=== PATIENT | female | born 1980 | race Two or more races ===

== ENCOUNTER 2020-11-01 07:15 | Day surgery (SDC) | payer BC ==
[2020-11-01] VITALS (10 sets, daily range): BP systolic 91–118; BP diastolic 49–73
[~2020-11-01] VITALS: Ht 157.5 cm; Wt 68.0 kg
--- NOTE | 2020-11-01 08:49 | Pre-Procedure Note/Attestation ---
Pre-Procedure Note/Attestation Complete Prior to Procedure Planned Procedure: not applicable Procedure Narrative: esophagogastroduodenoscopy and colonoscopy Indications for Procedure Pre-Operative Diagnosis: rectal bleed Attestation I attest that I discussed the nature of the procedure; its benefits; risks and complications; and alternatives (and the risks and benefits of such alternative s), prior to the procedure, with the patient (or the patient's legal artist representative). I attest that, if there was a reasonable possibility of needing a blood transfusion, the patient (or the patient's legal artist representative) was given the [facility] standardized written summary, pursuant to the Michael Keyla Blood Safety Act ([place] Health and Safety Code # 1645, as amended). I attest that I re-evaluated the patient just prior to the surgery and that there has been no change in the patient's H&P, except as documented below: Paramjit Alexandre MD Nov 01, 2020 08:49
--- NOTE | 2020-11-01 08:49 | Short Stay Surgery H&P ---
History of Present Illness History of Present Illness Chief Complaint see office note HPI Karen Urena is a 40 year old female who was admitted on for Rectal Bleed Patient History Allergies: Coded Allergies: No Known Allergies (Unverified , 10/30/20) Medication History No Active Prescriptions or Reported Meds Physical Exam Vital Signs Last Vital Signs Date Time Temp Pulse Resp B/P (MAP) Pulse Ox O2 Delivery O2 Flow Rate FiO2 11/01/20 07:59 Room Air 11/01/20 07:48 97.6 79 18 111/72 98 Labs Laboratory Tests Test 11/01/20 07:30 Urine HCG, Qualitative Negative (NEGATIVE) Plan Attestation Are the patient's medical conditions optimized for surgery? Paramjit Alexandre MD Nov 01, 2020 08:49
--- NOTE | 2020-11-01 08:58 | Short Stay Surgery H&P ---
History of Present Illness History of Present Illness Chief Complaint rectal bleed ALTA Urena is a 40 year old female who was admitted on for Rectal Bleed Patient History Allergies: Coded Allergies: No Known Allergies (Unverified , 10/30/20) PAST MEDICAL HISTORY: (1) Hemorrhoids Medication History No Active Prescriptions or Reported Meds Review of Systems Cardiovascular: Reports: no symptoms Respiratory: Reports: no symptoms Skeletal: Reports: no symptoms Gastrointestinal: Reports: no symptoms Genitourinary: Reports: no symptoms Neurologic: Reports: no symptoms Endocrine: Reports: no symptoms Hematologic: Reports: no symptoms Physical Exam Vital Signs Last Vital Signs Date Time Temp Pulse Resp B/P (MAP) Pulse Ox O2 Delivery O2 Flow Rate FiO2 11/01/20 07:59 Room Air 11/01/20 07:48 97.6 79 18 111/72 98 Labs Laboratory Tests Test 11/01/20 07:30 Urine HCG, Qualitative Negative (NEGATIVE) Skin: normal HENT: normal Heart: normal Lungs: normal Abdomen: normal Extremities: normal Plan Plan of Care colonoscopy Attestation Are the patient's medical conditions optimized for surgery? Attestation Response: yes Paramjit Alexandre MD Nov 01, 2020 08:58
--- NOTE | 2020-11-01 09:22 | Immediate Post-Op Evaluation ---
Immediate Post-Op Evalulation Immediate Post-Op Evalulation Procedure: colonoscopy Date of Evaluation: Nov 01, 2020 Time of Evaluation: 09:21 IV Fluids: 500 Blood Pressure Systolic: 101 Blood Pressure Diastolic: 50 Pulse Rate: 79 Respiratory Rate: 14 O2 Sat by Pulse Oximetry: 98 Temperature (Fahrenheit): 97.4 Nausea: No Vomiting: No Patient Status: awake, reacts, patent Hydration Status: adequate Drug: none Cherry Gresham CRNA Nov 01, 2020 09:22
--- NOTE | 2020-11-01 09:27 | Anethesia Preoperative Eval ---
Anesthesia Pre-op PMH/ROS General Date of Evaluation: Nov 01, 2020 Time of Evaluation: 09:00 Anesthesiologist: kvng ASA Score: ASA 1 Mallampati Score Class I : Soft palate, uvula, fauces, pillars visible Class II: Soft palate, uvula, fauces visible Class III: Soft palate, base of uvula visible Class IV: Only hard plate visible Mallampati Classification: Class II Surgeon: kristen Diagnosis: Rectal Bleed Surgical Procedure: Colonoscopy Anesthesia History: none Family History: no anesthesia problems Allergies: Coded Allergies: No Known Allergies (Unverified , 10/30/20) Medications: see eMAR Patient NPO?: Yes NPO Date: Nov 01, 2020 NPO Time: 00:01 Past Medical History Cardiovascular: Denies: HTN, CAD, OR, valve dz, arrhythmia, other Pulmonary: Denies: asthma, COPD, ANKUR, other Gastrointestinal/Genitourinary: Denies: GERD, CRI, ESRD, other Neurologic/Psychiatric: Denies: dementia, CVA, depression/anxiety, TIA, other Endocrine: Denies: DM, hypothyroidism, steroids, other HEENT: Denies: cataract (L), cataract (R), glaucoma, [facility] (L), [facility] (R), other Hematology/Immune: Denies: anemia, DVT, bleeding disorder, other Musculoskeletal/Integumentary: Denies: OA, RA, DJD, DDD, edema, other PSxH Narrative: none Anesthesia Pre-op Phys. Exam Physician Exam Last Vital Signs Date Time Temp Pulse Resp B/P (MAP) Pulse Ox O2 Delivery O2 Flow Rate FiO2 11/01/20 09:22 79 14 98 11/01/20 07:59 Room Air 11/01/20 07:48 97.6 111/72 Constitutional: NAD Neurologic: CN 2-12 intact Cardiovascular: RRR Respiratory: CTA Gastrointestinal: S/NT/ND Airway Exam Mallampati Classification 2 Mallampati Score: Class II MO: full ROM: full Dentures: no upper, no lower Anesthesia Pre-op A/P Labs Urine Test Test 11/01/20 07:30 Urine HCG, Qualitative Negative (NEGATIVE) Studies Pre-op Studies: EKG - sr Risk Assessment & Plan Assessment: covid neg Plan: mac Status Change Before Surgery: No Pre-Antibiotics Drug: none Tarrillion,Cherry Han [employer] Nov 01, 2020 09:27
--- NOTE | 2020-11-01 09:35 | Endoscopy Procedure Note ---
Endoscopy Procedure Note General Indication for Procedure: rectal bleed Procedures Performed: colonoscopy Operative Findings/Diagnosis: rectal mass Specimen: yes Pt Tolerated Procedure Well: Yes Estimated Blood Loss: none Anesthesia Anesthesiologist: bo Anesthesia: MAC Inserted Devices Implant(s) used?: No Quality Quality of Bowel Preparation: Good Did scope reach the cecum?: Yes Was there any complications?: No GI Core Measures 50 yrs or older w/o bx or poly: Not Applicable 10yrs. F/U recommended: Not Applicable Paramjit Alexandre MD Nov 01, 2020 09:35
[2020-11-01 10:10] LABS: BASOPHILS % (AUTO) 0.5 % (0.0-2.0); EOSINOPHILS % (AUTO) 1.9 % (0.0-3.0); HEMATOCRIT 43.3 % (37.0-47.0); HEMOGLOBIN 13.7 G/DL (12.0-16.0); MEAN CORPUSCULAR VOLUME 89 FL (80-99); MONOCYTES % (AUTO) 5.8 % (1.0-10.0); NEUTROPHILS % (AUTO) 58.7 % (45.0-75.0); PLATELET COUNT 308 K/UL (150-450); RED BLOOD COUNT 4.88 M/UL (4.20-5.40); RED CELL DISTRIBUTION WIDTH 11.5 % (11.6-14.8)
--- NOTE | 2020-11-01 10:14 | Procedure Note ---
DATE OF PROCEDURE: 11/01/2020 SURGEON: Paramjit Alexandre MD PROCEDURE: Colonoscopy with biopsy and polypectomy. ANESTHESIA: Per DESIGN STUDIO CONSULTANT, Cherry Tarrilllayne. INSTRUMENT: Olympus adult flexible colonoscope. INDICATION: Rectal bleeding. REASON FOR PROCEDURE: The procedure, risks, benefits, and possible consequences, including hemorrhage, aspiration, perforation and infection, and alternative treatments, were explained to the patient/legal guardian by Dr. Paramjit Alexandre and the patient/legal guardian understood and accepted these risks. DESCRIPTION OF PROCEDURE: After informed consent was obtained and patient was adequately sedated, first rectal examination was performed, which was positive for internal hemorrhoids. Then the scope was advanced from the rectum into the cecum documented by appendiceal orifice, ileocecal valve, and right upper quadrant palpation. Quality of prep was very good. The patient had one polyp about 5 mm in the sigmoid colon, removed with cold snare polypectomy technique. The patient had another small polyp in the rectum removed with cold biopsy forceps technique. The patient had a mass measured roughly about 3 cm in the rectum 7.5 to 8 cm from anal verge, ulcerative, apple-core looking covering about 75% of the lumen of the rectum, highly suspicious for malignancy status post multiple biopsy. SUMMARY OF FINDINGS: 1. Two colonic polyps removed, see above for details. 2. Large rectal mass, see above for details, status post biopsy. RECOMMENDATIONS: 1. Follow pathology. 2. Recommend CT of the chest, abdomen, and pelvis for staging. If there is no evidence of any metastasis, the patient most probably would need rectal EUS for staging, oncology and surgery consultation. Paramjit Alexandre M.D. DR: Mae JOB#: [id number] CC:
[2020-11-01 10:26] LABS: ANION GAP 10 mmol/L (5-15); BLOOD UREA NITROGEN 8 mg/dL (7-18); CALCIUM 8.5 MG/DL (8.5-10.1); CARBON DIOXIDE 24 MMOL/L (21-32); CHLORIDE 108 MMOL/L (98-107); CREATININE 0.6 MG/DL (0.55-1.30); POTASSIUM 3.6 MMOL/L (3.5-5.1); SODIUM 142 MMOL/L (136-145)
--- NOTE | 2020-11-01 10:27 | 48 Hour Post Anesthesia Eval ---
Post Anesthesia Evaluation Procedure: colonoscopy Date of Evaluation: Nov 01, 2020 Time of Evaluation: 10:27 Blood Pressure Systolic: 107 0: 65 Pulse Rate: 70 Respiratory Rate: 14 Temperature (Fahrenheit): 97.5 O2 Sat by Pulse Oximetry: 98 Airway: patent Nausea: No Vomiting: No Hydration Status: adequate Cardiopulmonary Status: stable Mental Status/LOC: patient returned to baseline Post-Anesthesia Complications: none Follow-up care needed: N/A Cherry Gresham CRNA Nov 01, 2020 10:27
[2020-11-01 10:30] LABS: ALANINE AMINOTRANSFERASE 20 U/L (12-78); ALBUMIN 3.5 G/DL (3.4-5.0); ALKALINE PHOSPHATASE 80 U/L (46-116); ASPARTATE AMINO TRANSFERASE 22 U/L (15-37); BILIRUBIN,TOTAL 0.7 MG/DL (0.2-1.0)
== END 2020-11-01 10:30 | disposition home or self-care (01) ==
LOC: GAS 07:15
DX: K62.5 Hemorrhage of anus and rectum (principal); K63.5 Polyp of colon; C20 Malignant neoplasm of rectum
CPT/HCPCS: 36415; 80053; 81025; 82378; 85025; 94003; 94150